=== PATIENT | male | born 1945 | race Caucasian/White ===

== ENCOUNTER → 2024-09-01 | Outpatient (CLI) | payer MEDICARE, OTHER ==
[2024-09-01 14:14] LABS: Stool Occult Blood Guaiac 1 Neg (Neg)
[2024-09-01 14:15] LABS: Stool Occult Blood Guaiac 2 Neg (Neg)
[2024-09-01 14:16] LABS: Stool Occult Blood Guaiac 3 Neg (Neg)
== END | disposition home or self-care (01) ==
LOC: LAB SHORT 02:00 → LAB 02:00
PROVIDERS: Internal Medicine
DX: D64.9 Anemia, unspecified (principal)
CPT/HCPCS: 82272

== ENCOUNTER 2025-03-17 08:09 | Inpatient (IN) | payer MEDICARE, OTHER ==
[~2025-03-17] VITALS: Ht 162.6 cm; Wt 68.1 kg
[2025-03-17] MEDS ORDERED: OMEP20ER PO (08:28)
[2025-03-17] MEDS ORDERED: MODA200 PO (08:28)
[2025-03-17] MEDS ORDERED: TAMS.4ER PO (08:28)
[2025-03-17] MEDS ORDERED: SPIR25 PO (08:29)
[2025-03-17] MEDS ORDERED: OXYC5 PO (08:29)
[2025-03-17] MEDS ORDERED: FURO40 PO (08:29)
[2025-03-17] MEDS ORDERED: SERT100 PO (08:30)
[2025-03-17] MEDS ORDERED: FINA5 PO (08:30)
[2025-03-17] MEDS ORDERED: Mirtazapine45 M1 PO (08:30)
[2025-03-17] MEDS ORDERED: LOSA50 PO (08:30)
[2025-03-17] MEDS ORDERED: DONEPEZIL HCL10 MG PO (08:31)
[2025-03-17] MEDS ORDERED: PRAV20 PO (08:31)
[2025-03-17 08:32] LABS: BASOPHILS ABSOLUTE AUTO 0.04 K/mm3 (0.00-0.23); BASOPHILS PERCENT AUTO 0 % (0-2); EOSINOPHILS ABSOLUTE AUTO 0.28 K/mm3 (0.00-0.68); EOSINOPHILS PERCENT AUTO 3 % (0-6); Hematocrit 42.9 % (37.0-53.0); Hemoglobin 14.3 g/dL (13.5-17.5); IMMATURE GRAN ABSOLUTE AUTO 0.06 K/mm3 (0.00-0.10); IMMATURE GRAN PERCENT AUTO 1 % (0-1); LYMPHOCYTES ABSOLUTE AUTO 2.20 K/mm3 (0.84-5.20); LYMPHOCYTES PERCENT AUTO 21 % (21-46); MONOCYTES ABSOLUTE AUTO 0.73 K/mm3 (0.16-1.47); MONOCYTES PERCENT AUTO 7 % (4-13); Mean Corpuscular HGB Conc 33.3 g/dL (31.5-36.5); Mean Corpuscular Volume 95 fL (80-100); NEUTROPHILS ABSOLUTE AUTO 7.40 K/mm3 (1.96-9.15); NEUTROPHILS PERCENT AUTO 69 % (41-73); NRBC ABSOLUTE 0.00 K/mm3 (0.00-0.02); NRBC Auto 0.0 /100 WBC (0.0-0.2); Platelet Count 269 K/mm3 (150-400); RDW Coefficient Variation 14.1 % (11.7-14.2); RDW Standard Deviation 49.2 fL (35.1-46.3)
[2025-03-17 09:00] LABS: Alanine Aminotransfer (ALT/SGP 23.0 U/L (12-78); Albumin, Blood 3.7 g/dL (3.4-5.0); Albumin/Globulin Ratio 1.2 (0.8-1.8); Anion Gap 8.0 mmol/L (3-11); Aspartate Aminotrans (AST/SGOT 15.0 U/L (12-37); Bilirubin, Total 0.4 mg/dL (0.1-1.0); Blood Urea Nitrogen 22.0 mg/dL (8-24); CO2, Blood 25.0 mmol/L (21-32); Calcium, Blood 8.9 mg/dL (8.5-10.1); Chloride, Blood 108.0 mmol/L (98-108); Creatinine, Blood 1.05 mg/dL (0.60-1.20); Globulin, Blood 3.2 g/dL (2.2-4.0); Glucose, Blood 109.0 mg/dL (70-99); Potassium, Blood 4.0 mmol/L (3.5-5.5); Sodium, Blood 137.0 mmol/L (136-145); Total Protein, Blood 6.9 g/dL (6.4-8.2)
[2025-03-17] MEDS ORDERED: Ondansetron HCl 2 MG / ML 2ML Vial IV PRN (12:00)
[2025-03-17] MEDS ORDERED: FLU VACC TS2025(65UP)/MF59C/PF 45 MCG/0.5 ML SYRINGE IM SCH (12:00)
[2025-03-17] MEDS ORDERED: NS 1,000 ML IV SCH (12:00)
--- NOTE | 2025-03-17 15:33 | NUR ---
patient arrived to medical floor room [id number]
--- NOTE | 2025-03-17 15:33 | NUR ---
[id number] got report from ed for pt coming to 353
[2025-03-17 15:34] VITALS: BP 173/85
--- NOTE | 2025-03-17 17:44 | NUR ---
SHIFT SUMMARY PATIENT IS A&OX4, PLEASANT AND COOPERATIVE WITH CARE. ON TELE WITH SINUS PADDY IN THE 50'S, THOUGH HR IS DROPPING INTO THE 40'S WHILE SLEEPING. HE WAS PAINFUL IN HIS LOWER BACK WHICH IS A CHRONIC ISSUE FOR WHICH HE HAD A RECENT SPINAL ABLATION. HE IS MEDICATED PER EMAR FOR THE PAIN. OTHER EFFECTIVE METHOD FOR RELIEF OF THE LBP IS LAYING ON HIS SIDE AND RESTING. HE IS CONTINENT AND USING THE BSC/URINAL. CONTINUOUS PULSE OXIMETRY ON SATURATION >92% ON ROOM AIR. NS IS RUNNING AT 100ML/HR. HE AMBULATES WITH SBA, HOWEVER IS WEAK AND WITH HIS HISTORY HE IS A HIGH RISK FOR FALLS. USING CALL SYSTEM APPROPRIATELY. BED IS LOW AND LOCKED. CALL LIGHT IN REACH.
[2025-03-17 20:17] VITALS: BP 133/65
--- NOTE | 2025-03-17 21:29 | NUR ---
NEW ORDERS RECEIVED PER BREAK NURSE FROM THE ON-CALL HOSPITALIST THIS HS: MIRTAZAPINE 45MG PO START TONIGHT, INSTEAD TOMORROW AT 2100. AND CHANGE ZOLOFT TO 200MG (WAS 100MG) AND TIME FROM TOMORROW 0900 TO TONIGHT AT 2100. ADMINISTERED ORDERED PER PT REQUEST. PER PT REPORT, THESE ARE MEDICATIONS, TIMES AND DOSES THAT HE TAKES HOME MEDICATIONS.
[2025-03-18 00:54] VITALS: BP 136/75
[2025-03-18 03:37] VITALS: BP 122/62
--- NOTE | 2025-03-18 03:56 | NUR ---
SHIFT SUMMARY NO ACUTE EVENTS DURING THIS SHIFT. NO FACIAL DROOP NOTED. SOFT SPOKEN. HAND SKIP LOCATOR AND FOOT STRENGHT BILATERALLY/EQUALLY STRONG, NO S/SX OF DEFICIT. PT IS A/O X4, ABLE TO MAKE HIS NEEDS KNOWN AND COOPERATIVE WITH CARE. PADDY CARDIA HR 45-55 DURING THE NIGHT HRS. ON CLEAR LIQUID DIET. SWALLOW INTACT, CRANIAL NERVES INTACT. BED AT THE LOWEST POSITION, CALL LIGHT WITHIN REACH.
[2025-03-18 06:14] LABS: BASOPHILS ABSOLUTE AUTO 0.04 K/mm3 (0.00-0.23); BASOPHILS PERCENT AUTO 0 % (0-2); EOSINOPHILS ABSOLUTE AUTO 0.20 K/mm3 (0.00-0.68); EOSINOPHILS PERCENT AUTO 2 % (0-6); Hematocrit 40.8 % (37.0-53.0); Hemoglobin 13.7 g/dL (13.5-17.5); IMMATURE GRAN ABSOLUTE AUTO 0.04 K/mm3 (0.00-0.10); IMMATURE GRAN PERCENT AUTO 0 % (0-1); LYMPHOCYTES ABSOLUTE AUTO 2.02 K/mm3 (0.84-5.20); LYMPHOCYTES PERCENT AUTO 21 % (21-46); MONOCYTES ABSOLUTE AUTO 0.81 K/mm3 (0.16-1.47); MONOCYTES PERCENT AUTO 8 % (4-13); Mean Corpuscular HGB Conc 33.6 g/dL (31.5-36.5); Mean Corpuscular Volume 93 fL (80-100); NEUTROPHILS ABSOLUTE AUTO 6.54 K/mm3 (1.96-9.15); NEUTROPHILS PERCENT AUTO 68 % (41-73); NRBC ABSOLUTE 0.00 K/mm3 (0.00-0.02); NRBC Auto 0.0 /100 WBC (0.0-0.2); Platelet Count 252 K/mm3 (150-400); RDW Coefficient Variation 13.9 % (11.7-14.2); RDW Standard Deviation 47.2 fL (35.1-46.3)
[2025-03-18 06:29] LABS: Alanine Aminotransfer (ALT/SGP 22.0 U/L (12-78); Albumin, Blood 3.7 g/dL (3.4-5.0); Albumin/Globulin Ratio 1.2 (0.8-1.8); Anion Gap 9.0 mmol/L (3-11); Aspartate Aminotrans (AST/SGOT 13.0 U/L (12-37); Bilirubin, Total 0.5 mg/dL (0.1-1.0); Blood Urea Nitrogen 15.0 mg/dL (8-24); CO2, Blood 23.0 mmol/L (21-32); Calcium, Blood 9.1 mg/dL (8.5-10.1); Chloride, Blood 111.0 mmol/L (98-108); Creatinine, Blood 0.93 mg/dL (0.60-1.20); Globulin, Blood 3.1 g/dL (2.2-4.0); Glucose, Blood 100.0 mg/dL (70-99); Potassium, Blood 3.8 mmol/L (3.5-5.5); Sodium, Blood 139.0 mmol/L (136-145); Total Protein, Blood 6.8 g/dL (6.4-8.2)
[2025-03-18 08:00] VITALS: BP 159/86
--- NOTE | 2025-03-18 10:06 | NUR ---
1000- verbal from md fair to nishant follow up manager.
[2025-03-18] MEDS ORDERED: CLOP75 PO (13:56)
--- NOTE | 2025-03-18 14:09 | NUR ---
140 DISCHARGE PATIENT DISCHARGED TO HOME. DISCHARGE INSTRUCTIONS AND MED LIST REVIEWED WITH PATIENT AND PATIENT'S DAUGHTER IN LAW, DISCHARGE MEDICATIONS FAXED TO [facility]. PATIENT LEFT BY WHEELCHAIR WITH DAUGHTER IN LAW. PATIENT LEFT WITH ALL OF HIS BELONGINGS AND IN A STABLE CONDITION.
== END 2025-03-18 14:16 | disposition home or self-care (01) | DRG 69 ==
LOC: ER 08:09 → MEDS 11:57 → ERHOLD 11:57 → MEDS 15:44
PROVIDERS: Emergency Medicine; ADMIT Internal Medicine
DX: G45.9 Transient cerebral ischemic attack, unspecified (principal); I50.22 Chronic systolic (congestive) heart failure; F03.93 Unspecified dementia, unspecified severity, with mood disturbance; K21.9 Gastro-esophageal reflux disease without esophagitis; I25.10 Atherosclerotic heart disease of native coronary artery without angina pectoris; Z66 Do not resuscitate; Z51.5 Encounter for palliative care; G47.419 Narcolepsy without cataplexy; E78.5 Hyperlipidemia, unspecified; I11.0 Hypertensive heart disease with heart failure; N40.0 Benign prostatic hyperplasia without lower urinary tract symptoms; M54.9 Dorsalgia, unspecified; G89.29 Other chronic pain; Z23 Encounter for immunization; Z79.899 Other long term (current) drug therapy; Z99.3 Dependence on wheelchair; Z79.891 Long term (current) use of opiate analgesic
CPT/HCPCS: 36415; 70450; 70496; 70498; 70551; 80053; 84484; 85025; 86850; 86900; 86901; 92610; 93005; 93010; 94762; 97116; 97161; 99285-25; A9270; J7030; Q9967